=== PATIENT | female | born 1950 | race Caucasian/White ===

== ENCOUNTER 2017-07-01 18:10 | Inpatient (IN) | payer MEDICARE, BC ==
[2017-07-01] MEDS ORDERED: ASPIRIN 81 MG PO STA (18:30)
[2017-07-01] MEDS ORDERED: NITROGLYCERIN SL TABS 0.4 MG TAB SUBLINGUAL PRN (18:30)
[2017-07-01] MEDS ORDERED: SODIUM CHLORIDE 0.9% 1,000 ML IV STA (18:30)
[2017-07-01] MEDS ORDERED: HEPARIN SODIUM,PORCINE/D5W PMX 25,000 UNIT in DEXTROSE/WATER 1 500ML.BAG IV SCH (18:30)
[2017-07-01] MEDS ORDERED: HEPARIN SODIUM,PORCINE 5,000 UNIT/ML 1 ML VIAL IV PRN (18:30)
[2017-07-01 18:51] LABS: Basophils # (A) 0.1 k/uL (0-0.2); Basophils % (A) 1 %; CH 30.4; CHCM 33.1; Eosinophils # (A) 0.2 k/uL (0-0.7); Eosinophils % (A) 1 %; HCT 37.7 % (34.0-46.0); HDW 2.51; HGB 12.7 gm/dL (11.4-16.0); Luc # (Auto) 0.15; Luc % (Auto) 1; Lymphocytes # (A) 1.8 k/uL (1.0-4.8); Lymphocytes % (A) 12 %; MCH 31.1 pg (25.0-35.0); MCHC 33.6 g/dL (31.0-37.0); MCV 92.4 fL (80.0-100.0); Mean Platelet Volume 7.1; Monocytes # (A) 0.7 k/uL (0-1.0); Monocytes % (A) 4 %; Neutrophils # (A) 12.6 k/uL (1.3-7.7); Neutrophils % (A) 81 %; RBC 4.08 m/uL (3.80-5.40); RDW 13.2 % (11.5-15.5); WBC 15.5 k/uL (3.8-10.6); WBC (Perox) 16.09
[2017-07-01 19:02] LABS: INR 1.1 (<1.2); Partial Thromboplastin Time 35.5 sec (22.0-30.0); Prothrombin Time 10.7 sec (9.0-12.0)
--- NOTE | 2017-07-01 19:05 | ED ---
General Adult HPI - General Chief complaint: Chest Pain Stated complaint: Chest Pain Time Seen by Provider: 07/01/17 18:29 Source: patient, EMS, RN notes reviewed, old records reviewed Mode of arrival: ambulatory Limitations: no limitations - History of Present Illness Initial comments: This is a 59-year-old female here for evaluation. This patient presents for evaluation regarding non-ST elevated [place], chest pain. Patient's transfer patient , this time patient's chest pain is still exists but is improved, as well as a 2 with no shortness of breath. - Related Data Home Medications Medication Instructions Recorded Confirmed Calcium Carbonate/Vitamin D3 1 tab PO BID 04/08/14 07/01/17 [Caltrate 600 + D Tablet] Cholecalciferol [Vitamin D3] 3,000 units PO BID 04/08/14 07/01/17 metFORMIN HCL [Glucophage] 1,000 mg PO BID-W/MEALS 04/08/14 07/01/17 Atorvastatin [Lipitor] 20 mg PO HS 07/01/17 07/01/17 Esomeprazole Magnesium [NexIUM 22.3 mg PO BID 07/01/17 07/01/17 24Hr] Allergies Allergy/AdvReac Type Severity Reaction Status Date / Time codeine AdvReac Nausea & Verified 07/01/17 18:19 Vomiting Review of Systems ROS Statement: Those systems with pertinent positive or pertinent negative responses have been documented in the HPI. ROS Other: All systems not noted in ROS Statement are negative. Past Medical History Past Medical History: Cancer, Diabetes Mellitus, Deep Vein Thrombosis (DVT), GERD/Reflux, Hyperlipidemia Additional Past Medical History / Comment(s): BREAST BILATERAL CA History of Any Multi-Drug Resistant Organisms: None Reported Past Surgical History: Breast Surgery, Hysterectomy, Tubal Ligation Additional Past Surgical History / Comment(s): LEFT LUMPECTOMY. RIGHT MASTECTOMY Past Anesthesia/Blood Transfusion Reactions: No Reported Reaction Past Psychological History: No Psychological Hx Reported Smoking Status: Never smoker - Past Family History Mother Family Medical History: Cancer Additional Family Medical History / Comment(s): COLON, PROSTATE. General Exam Limitations: no limitations General appearance: alert, in no apparent distress Head exam: Present: atraumatic, normocephalic, normal inspection Eye exam: Present: normal appearance, PERRL, EOMI. Absent: scleral icterus, conjunctival injection, periorbital swelling ENT exam: Present: normal exam, mucous membranes moist Neck exam: Present: normal inspection. Absent: tenderness, meningismus, lymphadenopathy Respiratory exam: Present: normal lung sounds bilaterally. Absent: respiratory distress, wheezes, rales, rhonchi, stridor Cardiovascular Exam: Present: regular rate, normal rhythm, normal heart sounds. Absent: systolic murmur, diastolic murmur, rubs, gallop, clicks GI/Abdominal exam: Present: soft, normal bowel sounds. Absent: distended, tenderness, guarding, rebound, rigid Extremities exam: Present: normal inspection, full ROM, normal capillary refill. Absent: tenderness, pedal edema, joint swelling, calf tenderness Back exam: Present: normal inspection Neurological exam: Present: alert, oriented X3, CN II-XII intact Psychiatric exam: Present: normal affect, normal mood Skin exam: Present: warm, dry, intact, normal color. 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 Patient has positive S non-ST elevated [place], positive troponin we'll defer anticoagulation and cardiopulmonary evaluation - Lab Data Result diagrams: 07/01/17 18:39 07/01/17 18:39 Lab Results 07/01/17 07/01/17 07/01/17 Range/Units 18:39 18:39 18:39 WBC 15.5 H (3.8-10.6) k/uL RBC 4.08 (3.80-5.40) m/uL Hgb 12.7 (11.4-16.0) gm/dL Hct 37.7 (34.0-46.0) % MCV 92.4 (80.0-100.0) fL MCH 31.1 (25.0-35.0) pg MCHC 33.6 (31.0-37.0) g/dL RDW 13.2 (11.5-15.5) % Plt Count 380 (150-450) k/uL Neutrophils % 81 % Lymphocytes % 12 % Monocytes % 4 % Eosinophils % 1 % Basophils % 1 % Neutrophils # 12.6 H (1.3-7.7) k/uL Lymphocytes # 1.8 (1.0-4.8) k/uL Monocytes # 0.7 (0-1.0) k/uL Eosinophils # 0.2 (0-0.7) k/uL Basophils # 0.1 (0-0.2) k/uL PT 10.7 (9.0-12.0) sec INR 1.1 (<1.2) APTT 35.5 H (22.0-30.0) sec Sodium 135 L (137-145) mmol/L Potassium 4.0 (3.5-5.1) mmol/L Chloride 102 (98-107) mmol/L Carbon Dioxide 24 (22-30) mmol/L Anion Gap 9 mmol/L BUN 14 (7-17) mg/dL Creatinine 0.75 (0.52-1.04) mg/dL Est GFR (MDRD) Af Amer >60 (>60 ml/min/1.73 sqM) Est GFR (MDRD) Non-Af >60 (>60 ml/min/1.73 sqM) Glucose 172 H (74-99) mg/dL Calcium 8.8 (8.4-10.2) mg/dL Magnesium 1.1 L (1.6-2.3) mg/dL Total Bilirubin 0.8 (0.2-1.3) mg/dL AST 40 H (14-36) U/L ALT 32 (9-52) U/L Alkaline Phosphatase 82 (38-126) U/L Total Protein 5.8 L (6.3-8.2) g/dL Albumin 3.4 L (3.5-5.0) g/dL Critical Care Time Critical Care Time: Yes Total Critical Care Time: 31 Disposition Clinical Impression: Chest pain, Acute non-ST segment elevation myocardial infarction (STEMI) following previous myocardial infarction Disposition: ADMITTED IP TO THIS HOSP Condition: Serious Referrals: Nonstaff,Physician [Primary Care Provider] - 1-2 days
[2017-07-01 19:08] LABS: ALT 32 U/L (9-52); AST 40 U/L (14-36); Alkaline Phosphatase 82 U/L (38-126); Anion Gap 9 mmol/L; Blood Urea Nitrogen 14 mg/dL (7-17); Calcium 8.8 mg/dL (8.4-10.2); Carbon Dioxide 24 mmol/L (22-30); Chloride 102 mmol/L (98-107); Glucose 172 mg/dL (74-99); Magnesium 1.1 mg/dL (1.6-2.3); Non-African American GFR(MDRD) >60 (>60 ml/min/1.73 sqM); Sodium 135 mmol/L (137-145); Total Bilirubin 0.8 mg/dL (0.2-1.3); Total Protein 5.8 g/dL (6.3-8.2)
[2017-07-01 19:37] LABS: Creatine Kinase MB 14.4 ng/mL (0.0-2.4); Troponin I 3.02 ng/mL (0.000-0.034)
[2017-07-01 20:49] VITALS: BMI 30.2
[2017-07-01] MEDS ORDERED: HYDROmorphone 1 MG/ML 1 ML SYRINGE IVP PRN (22:12)
[2017-07-01] MEDS ORDERED: ACETAMINOPHEN TAB 325 MG TAB PO PRN (22:14)
[2017-07-01] MEDS ORDERED: Magnesium Replacement Protocol 1 EACH MISC MISCELLANE PRN (22:15)
[2017-07-01] MEDS: MAGNESIUM SULFATE-D5W PMX 1 GM in DEXTROSE/WATER 1 100ML.BAG IVPB SCH (23:06)
[2017-07-01] MEDS: NITROGLYCERIN OINT 1 INCH/GM PACKET TOPICAL SCH (23:07)
[2017-07-02] MEDS: MAGNESIUM SULFATE-D5W PMX 1 GM in DEXTROSE/WATER 1 100ML.BAG IVPB SCH ×2 (00:08→01:17)
[2017-07-02 01:35] LABS: Creatine Kinase MB 11.3 ng/mL (0.0-2.4); Troponin I 4.65 ng/mL (0.000-0.034)
[2017-07-02] MEDS: NITROGLYCERIN OINT 1 INCH/GM PACKET TOPICAL SCH ×4 (05:47→23:43)
[2017-07-02 06:08] LABS: Glucose,Whole Blood 226 mg/dL (75-99)
[2017-07-02 07:49] LABS: Basophils # (A) 0.1 k/uL (0-0.2); Basophils % (A) 1 %; CH 31.4; CHCM 33.2; Eosinophils % (A) 0 %; HCT 37.4 % (34.0-46.0); HDW 2.38; HGB 12.2 gm/dL (11.4-16.0); Luc # (Auto) 0.18; Luc % (Auto) 1; Lymphocytes # (A) 1.9 k/uL (1.0-4.8); Lymphocytes % (A) 15 %; MCHC 32.6 g/dL (31.0-37.0); Mean Platelet Volume 8.2; Monocytes # (A) 0.9 k/uL (0-1.0); Monocytes % (A) 7 %; Neutrophils # (A) 9.9 k/uL (1.3-7.7); Neutrophils % (A) 76 %; RBC 3.94 m/uL (3.80-5.40); RDW 14.3 % (11.5-15.5); WBC (Perox) 12.68
--- NOTE | 2017-07-02 07:51 | XR ---
EXAMINATION TYPE: XR chest 1V portable DATE OF EXAM: 07/02/2017 COMPARISON: Prior chest x-ray 07/01/2017 HISTORY: Congestive heart failure TECHNIQUE: Single frontal view of the chest is obtained. FINDINGS: Postop changes are again noted. The heart remains enlarged. No pneumothorax. Interstitium is increased. Difficult to exclude retrocardiac density. IMPRESSION: Similar to prior exam, there is cardiomegaly. There may be some interstitial edema. Ther e may be lower lobe atelectasis, edema, pneumonia. Follow-up PA and lateral chest x-ray may be of greg efit.
[2017-07-02 08:10] LABS: Anion Gap 7 mmol/L; Blood Urea Nitrogen 10 mg/dL (7-17); Carbon Dioxide 23 mmol/L (22-30); Chloride 102 mmol/L (98-107); Cholesterol 179 mg/dL (<200); Glucose 236 mg/dL (74-99); HDL Cholesterol 75 mg/dL (40-60); Magnesium 1.9 mg/dL (1.6-2.3); Non-African American GFR(MDRD) >60 (>60 ml/min/1.73 sqM); Potassium 4.1 mmol/L (3.5-5.1); Sodium 132 mmol/L (137-145)
--- NOTE | 2017-07-02 08:17 | P.CRDCN ---
History of Present Illness Consult date: 07/02/17 Requesting physician: Mansi [place] Consult reason: chest pain Chief complaint: Chest pain History of present illness: This is a pleasant 67-year-old female with history of diabetes, hyperlipidemia, breast cancer with prior right-sided mastectomy 20 years ago, 12 years ago patient had a left-sided lumpectomy. She is a nonsmoker, no history of hypertension. No family history of premature coronary artery disease. Patient presents to the hospital with symptoms of chest discomfort. According to the patient, yesterday morning she developed a severe heaviness and pressure sensation in her chest, she states she was very clammy, and nauseated. The pain did radiate over into her left shoulder area. She states that she went back to bed and slept for several hours, however upon wakening the symptoms persisted and she came to the emergency room for further evaluation. At the time of my examination this morning, she continues to have mild pressure, although she states this morning that the pain worsens when she takes a deep breath. EKG on arrival here shows a sinus tachycardia with nonspecific ST-T wave changes. Subsequent EKG performed this morning shows a sinus tachycardia with anterior lateral ST-T wave changes. Chest x-ray suggests a possible mild interstitial edema, may be lower lobe atelectasis or pneumonia. White blood cell count on admission 15.5, 13 this morning. Hemoglobin 12.2, platelet count 339. Sodium 135, potassium 4.0, BUN 14, creatinine 0.7. Magnesium level on admission 1.1, AST 40, ALT 32. Troponin 3.0 , 4.6. Blood pressure on arrival 130/80, heart rate 104, 99% on 2 L of oxygen. Past Medical History Past Medical History: Cancer, Diabetes Mellitus, Deep Vein Thrombosis (DVT), GERD/Reflux, Hyperlipidemia Additional Past Medical History / Comment(s): BREAST BILATERAL CA History of Any Multi-Drug Resistant Organisms: None Reported Past Surgical History: Breast Surgery, Hysterectomy, Tubal Ligation Additional Past Surgical History / Comment(s): LEFT LUMPECTOMY. RIGHT MASTECTOMY Past Anesthesia/Blood Transfusion Reactions: No Reported Reaction Past Psychological History: No Psychological Hx Reported Smoking Status: Never smoker Past Alcohol Use History: None Reported Past Drug Use History: None Reported - Past Family History Mother Family Medical History: Cancer Additional Family Medical History / Comment(s): COLON, PROSTATE. Medications and Allergies Home Medications Medication Instructions Recorded Confirmed Type Calcium Carbonate/Vitamin D3 1 tab PO BID 04/08/14 07/01/17 History [Caltrate 600 + D Tablet] Cholecalciferol [Vitamin D3] 3,000 units PO BID 04/08/14 07/01/17 History metFORMIN HCL [Glucophage] 1,000 mg PO BID-W/MEALS 04/08/14 07/01/17 History Atorvastatin [Lipitor] 20 mg PO HS 07/01/17 07/01/17 History Esomeprazole Magnesium [NexIUM 22.3 mg PO BID 07/01/17 07/01/17 History 24Hr] Allergies Allergy/AdvReac Type Severity Reaction Status Date / Time codeine AdvReac Nausea & Verified 07/01/17 18:19 Vomiting Physical Exam Vitals: Vital Signs Temp Pulse Pulse Resp BP BP BP 07/02/17 05:40 105 H 90/63 07/02/17 04:00 98.6 F 105 H 18 97/70 07/02/17 00:00 99.9 F H 116 H 18 111/78 07/01/17 20:34 97.5 F L 106 H 16 128/82 07/01/17 20:00 106 H 16 07/01/17 19:36 98.6 F 107 H 20 111/68 07/01/17 18:24 102 H 07/01/17 18:12 97.4 F L 104 H 20 131/87 Pulse Ox 07/02/17 05:40 07/02/17 04:00 94 L 07/02/17 00:00 94 L 07/01/17 20:34 100 07/01/17 20:00 07/01/17 19:36 99 07/01/17 18:24 07/01/17 18:12 99 Intake and Output 07/01/17 07/02/17 07/02/17 22:59 06:59 14:59 Intake Total 160 1389 Balance 160 1389 Intake: IV 160 1260 Heparin Sodium,Porcine/ 160 160 D5w Pmx 25,000 unit In Dextrose/Water 1 500ml. bag @ 11.1 UNITS/KG/HR 20 .03 mls/hr IV .Q24H REPLACED BY [facility] Rx#:[id number] Magnesium Sulfate-D5w Pmx 300 1 gm In Dextrose/Water 1 100ml.bag @ 100 mls/hr IVPB Q1H [facility]ACK[facility] Rx#: [id number] Sodium Chloride 0.9% 1, 800 000 ml @ 100 mls/hr IV . Q10H [facility] Rx#:[id number] Intake, IV Titration 129 Amount Heparin Sodium,Porcine/ 129 D5w Pmx 25,000 unit In Dextrose/Water 1 500ml. bag @ 11.1 UNITS/KG/HR 20 .03 mls/hr IV .Q24H JACKY Rx#:[id number] Other: Voiding Method Toilet Toilet # Voids 1 1 Weight 90.265 kg 90.7 kg PHYSICAL EXAMINATION: HEENT: Head is atraumatic, normocephalic. Pupils equal, round. Neck is supple. There is no elevated jugular venous pressure. HEART EXAMINATION: Heart S1, S2 normal. No murmur or gallop heard. CHEST EXAMINATION: Lungs are clear with mild diminished air entry to bilateral bases. ABDOMEN: Soft, nontender. Bowel sounds are heard. No organomegaly noted. EXTREMITIES: 2+ peripheral pulses with no evidence of peripheral edema and no calf tenderness noted. NEUROLOGIC patient is awake, alert and oriented -3. . Results 07/02/17 07:12 07/01/17 18:39 Cardiac Enzymes 07/01/17 07/01/17 07/02/17 Range/Units 18:39 18:39 00:44 AST 40 H (14-36) U/L CK-MB (CK-2) 14.4 H* 11.3 H* (0.0-2.4) ng/mL Troponin I 3.020 H* 4.650 H* (0.000-0.034) ng/mL Coagulation 07/01/17 07/02/17 Range/Units 18:39 00:44 PT 10.7 (9.0-12.0) sec APTT 35.5 H 30.9 H (22.0-30.0) sec CBC 07/01/17 07/02/17 Range/Units 18:39 07:12 WBC 15.5 H 13.0 H (3.8-10.6) k/uL RBC 4.08 3.94 (3.80-5.40) m/uL Hgb 12.7 12.2 (11.4-16.0) gm/dL Hct 37.7 37.4 (34.0-46.0) % Plt Count 380 339 (150-450) k/uL Comprehensive Metabolic Panel 07/01/17 Range/Units 18:39 Sodium 135 L (137-145) mmol/L Potassium 4.0 (3.5-5.1) mmol/L Chloride 102 (98-107) mmol/L Carbon Dioxide 24 (22-30) mmol/L BUN 14 (7-17) mg/dL Creatinine 0.75 (0.52-1.04) mg/dL Glucose 172 H (74-99) mg/dL Calcium 8.8 (8.4-10.2) mg/dL AST 40 H (14-36) U/L ALT 32 (9-52) U/L Alkaline Phosphatase 82 (38-126) U/L Total Protein 5.8 L (6.3-8.2) g/dL Albumin 3.4 L (3.5-5.0) g/dL Current Medications Generic Name Dose Route Start Last Admin Trade Name Freq PRN Reason Stop Dose Admin Acetaminophen 650 mg 07/01/17 22:14 Tylenol Tab PO Q6HR PRN Fever and/ or Pain Aspirin 325 mg 07/02/17 09:00 Aspirin PO DAILY REPLACED BY [facility] Atorvastatin Calcium 80 mg 07/02/17 09:00 Lipitor PO DAILY REPLACED BY [facility] Cholecalciferol 3,000 unit 07/02/17 09:00 Vitamin D3 PO BID REPLACED BY [facility] Heparin Sodium (Porcine) 0 unit 07/01/17 18:30 07/02/17 01:22 Heparin IV 4,000 unit Q6HR PRN Administration Low PTT Protocol Hydromorphone HCl 0.5 mg 07/01/17 22:12 Dilaudid IVP Q4HR PRN Pain Heparin Sodium/Dextrose 25,000 500 mls @ 20.03 mls/hr 07/01/17 18:30 01:23 unit/ IV Solution IV 14.07 units/kg/hr .Q24H JACKY 25.4 mls/hr Protocol Titration 11.1 UNITS/KG/HR Miscellaneous Information 1 each 07/01/17 22:15 Magnesium Per Protocol MISCELLANE DAILY PRN Per Protocol Protocol Nitroglycerin 0.4 mg 07/01/17 18:30 07/01/17 19:00 Nitrostat SUBLINGUAL 0.4 mg Q5M PRN Administration Chest Pain Nitroglycerin 1 inch 07/02/17 00:00 07/02/17 05:47 Nitro-Bid Oint TOPICAL Not Given Q6HR JACKY Intake and Output 07/01/17 07/02/17 07/02/17 22:59 06:59 14:59 Intake Total 160 1389 Balance 160 1389 Intake: IV 160 1260 Heparin Sodium,Porcine/ 160 160 D5w Pmx 25,000 unit In Dextrose/Water 1 500ml. bag @ 11.1 UNITS/KG/HR 20 .03 mls/hr IV .Q24H [facility] Rx#:[id number] Magnesium Sulfate-D5w Pmx 300 1 gm In Dextrose/Water 1 100ml.bag @ 100 mls/hr IVPB Q1H [facility] Rx#: [id number] Sodium Chloride 0.9% 1, 800 000 ml @ 100 mls/hr IV . Q10H [facility] Rx#:[id number] Intake, IV Titration 129 Amount Heparin Sodium,Porcine/ 129 D5w Pmx 25,000 unit In Dextrose/Water 1 500ml. bag @ 11.1 UNITS/KG/HR 20 .03 mls/hr IV .Q24H [facility] Rx#:[id number] Other: Voiding Method Toilet Toilet # Voids 1 1 Weight 90.265 kg 90.7 kg 07/02/17 07:12 07/01/17 18:39 EKG Interpretations (text) Initial EKG shows a sinus tachycardia with nonspecific ST-T wave changes. Repeat EKG performed this morning shows a sinus tachycardia with anterior lateral ST-T wave changes Assessment and Plan Plan: Assessment and plan #1 symptoms of chest pressure and heaviness with associated clamminess, nausea, and radiation to the left shoulder area. Suggestive of acute coronary syndrome. Troponins 3.0 and 4.6. EKG shows sinus tachycardia with anterior lateral ST-T wave changes #2 diabetes #3 hyperlipidemia #4 hypomagnesemia, replaced. #5 prior history of breast cancer, right-sided mastectomy 20 years ago, left- sided lumpectomy 12 years ago. Plan We will obtain a stat echocardiogram with Doppler study. Continue IV heparin. Replace magnesium. Give the patient 80 of Lipitor and now along with an aspirin. We will also give the patient a small dose of beta otilia. The patient has been advised that she may need to undergo cardiac catheterization for more definitive diagnosis. The risks and the benefits were explained to the patient in detail. Further recommendations to follow. DNP note has been reviewed, I agree with a documented findings and plan of care. Patient was seen and examined.
[2017-07-02] MEDS: ASPIRIN 325 MG TAB PO SCH (08:21)
[2017-07-02] MEDS: ATORVASTATIN 80 MG TAB PO SCH (08:21)
[2017-07-02] MEDS ORDERED: ALPRAZolam 0.5 MG TAB PO PRN (08:40)
[2017-07-02] MEDS ORDERED: ATORVASTATIN 80 MG TAB PO STA (08:40)
[2017-07-02] MEDS ORDERED: ASPIRIN 325 MG TAB PO STA (08:40)
[2017-07-02] MEDS ORDERED: ALPRAZolam 0.25 MG TAB PO PRN (08:40)
[2017-07-02] MEDS ORDERED: SODIUM CHLORIDE 0.9% 1,000 ML in EMPTY BAG 1 BAG IV ONE (08:40)
[2017-07-02] MEDS ORDERED: NITROGLYCERIN SL TABS 0.4 MG TAB SUBLINGUAL PRN ×2 (08:40→10:26)
[2017-07-02] MEDS ORDERED: IV FLUID CONTINUATION 1,000 ML IV ONE (09:10)
[2017-07-02] MEDS ORDERED: LIDOCAINE 2% INJ 20 MG/ML SQ ONE (09:41)
[2017-07-02] MEDS ORDERED: MIDAZOLAM 2 MG/2 ML VIAL IV ONE (09:42)
[2017-07-02] MEDS: VERAPAMIL SYRINGE (5 MG/10 ML) INTRAARTER ONE ×2 (09:43→10:20)
[2017-07-02] MEDS ORDERED: BIVALIRUDIN BOLUS 250 MG/50 ML IV ONE (09:56)
[2017-07-02] MEDS ORDERED: BIVALIRUDIN 250 MG in SODIUM CHLORIDE 0.9% 50 ML IV ONE (09:58)
[2017-07-02] MEDS ORDERED: MIDAZOLAM 2 MG/2 ML VIAL IVP ONE (10:00)
[2017-07-02] MEDS ORDERED: PRASUGREL 10 MG TAB PO ONE (10:12)
[2017-07-02] MEDS ORDERED: IOHEXOL 350 MG/ML 125ML BOTTLE INJ ONE (10:17)
[2017-07-02] MEDS ORDERED: ATROPINE SULFATE 0.1 MG/ML 10ML SYRINGE IV PRN (10:26)
[2017-07-02] MEDS ORDERED: RX INFO: IV CONTRAST WAS GIVEN 1 EACH MISC MISCELLANE PRN (10:26)
[2017-07-02] MEDS ORDERED: ZOLPIDEM 5 MG TAB PO PRN (10:26)
[2017-07-02] MEDS ORDERED: MAG HYDROX/AL HYDROX/SIMETH 30 ML CUP PO PRN (10:26)
[2017-07-02] MEDS ORDERED: SODIUM CHLORIDE 0.9% 1,000 ML IV SCH (10:30)
[2017-07-02 11:15] LABS: Glucose,Whole Blood 298 mg/dL (75-99)
--- NOTE | 2017-07-02 13:15 | ECHOF ---
Referral Reason:assess lvf MEASUREMENTS -------- HEIGHT: 172.7 cm WEIGHT: 90.3 kg BP: 90/63 RVIDd: 2.9 cm (< 3.3) IVSd: 1.2 cm (0.6 - 1.1) LVIDd: 4.3 cm (3.9 - 5.3) LVPWd: 1.1 cm (0.6 - 1.1) IVSs: 1.7 cm LVIDs: 3.5 cm LVPWs: 1.5 cm LA Diam: 3.0 cm (2.7 - 3.8) LAESV Index (A-L): 27.42 ml/m Ao Diam: 3.5 cm (2.0 - 3.7) AV Cusp: 1.8 cm (1.5 - 2.6) MV EXCURSION: 8.134 mm (> 18.000) MV EF SLOPE: 27 mm/s (70 - 150) EPSS: 1.7 cm MV E Jagjit: 0.89 m/s MV DecT: 144 ms MV A Jagjit: 0.95 m/s MV E/A Ratio: 0.94 RAP: 5.00 mmHg RVSP: 34.70 mmHg FINDINGS -------- This was a technically difficult study with suboptimal views. The left ventricular size is normal. There is borderline concentric left ventricular hypertrophy. Overall left ventricular systolic function is severely impaired with, an EF between 25 - 30 %. Apical anterior LV wall motion is hypokinetic. Apical lateral LV wall motion is hypokinetic. Apical inferior LV wall motion is hypokinetic. Apical septum LV wall motion is hypokinetic. The right ventricle is normal in size. The left atrial size is normal. The right atrium was not well visualized. 1.5mg of Definity was utilized for enhancement of images Aortic valve is trileaflet and is mildly thickened. Mild mitral annular calcification present. Mild tricuspid regurgitation present. There is mild pulmonary hypertension. The right ventricular systolic pressure, as measured by Doppler, is 34.70mmHg. Trace/mild (physiologic) pulmonic regurgitation. The aortic root size is normal. IVC Not well visulized. The pericardium is normal. CONCLUSIONS -------- 1. This was a technically difficult study with suboptimal views. 2. The right atrium was not well visualized. 3. 1.5mg of Definity was utilized for enhancement of images 4. Aortic valve is trileaflet and is mildly thickened. 5. Mild mitral annular calcification present. 6. Mild tricuspid regurgitation present. 7. There is mild pulmonary hypertension. 8. The right ventricular systolic pressure, as measured by Doppler, is 34.70mmHg. 9. Trace/mild (physiologic) pulmonic regurgitation. 10. The aortic root size is normal. 11. IVC Not well visulized. 12. The left ventricular size is normal. 13. The pericardium is normal. 14. There is borderline concentric left ventricular hypertrophy. 15. Apical anterior LV wall motion is hypokinetic. 16. Apical lateral LV wall motion is hypokinetic. 17. Apical inferior LV wall motion is hypokinetic. 18. Apical septum LV wall motion is hypokinetic. 19. The right ventricle is normal in size. 20. The left atrial size is normal. PLAN CONSULTANT: Christy Serrano RDCS
[2017-07-02 15:56] LABS: Appearance,Urine Clear (Clear); Bilirubin,Urine Negative (Negative); Glucose,Urine (UA) 4+ (Negative); Ketones,Urine Negative (Negative); Leukocyte Esterase,Urine Negative (Negative); Nitrite,Urine Negative (Negative); PH, Urine 5.5 (5.0-8.0); Protein,Urine Negative (Negative); Specific Gravity,Urine 1.025 (1.001-1.035); UA Billing (MACRO vs. MICRO) CHEM; Urobilinogen,Urine <2.0 mg/dL (<2.0)
[2017-07-02] MEDS: METOPROLOL TARTRATE 12.5 MG TAB PO SCH ×2 (16:23→20:24)
[2017-07-02] MEDS: CHOLECALCIFEROL 1,000 UNIT TAB PO SCH ×2 (16:23→20:25)
[2017-07-02 16:49] LABS: Glucose,Whole Blood 233 mg/dL (75-99)
--- NOTE | 2017-07-02 17:05 | HP ---
DATE OF SERVICE: 07/01/2017 CHIEF COMPLAINT: Chest pain. HISTORY OF PRESENT ILLNESS: This 67-year-old woman with a past medical history of multiple medical problems, including diabetes mellitus, DVT, history of GERD , hyperlipidemia, being followed by a primary physician in the [place] area , was admitted with chest pain that was diffuse in character, felt in the anterior part of the chest. The patient came to [facility] and was admitted for further evaluation and treatment. There is no history of any fever , rigor or chills. No history of headache, loss of consciousness, seizures. PAST MEDICAL HISTORY: 1. History of diabetes mellitus. 2. DVT. 3. History of GERD. 4. History of hyperlipidemia. Medications are: 1. Glucophage 1000 mg b.i.d. with meals. 2. Nexium 22.3 p.o. b.i.d. 3. Vitamin D3 3000 b.i.d. 4. Vitamin D3 one p.o. b.i.d. 5. Lipitor 20 mg at bedtime. ALLERGIES: CODEINE. FAMILY HISTORY: History of colon cancer, prostate cancer. SOCIAL HISTORY: No history of smoking. No history of alcohol intake. REVIEW OF SYSTEMS: ENT: No diminished hearing. No diminished vision. CARVIOVASCULAR SYSTEM: As mentioned earlier. RESPIRATORY SYSTEM: As mentioned earlier. GI: No nausea, vomiting. : No dysuria, retention. NERVOUS SYSTEM: No numbness, weakness. ALLERGY/IMMUNOLOGY: No asthma, hayfever. MUSCULOSKELETAL: As mentioned earlier. HEMATOLOGY/ONCOLOGY: No history of anemia. ENDOCRINE: History of diabetes. No hypothyroidism. CONSTITUTIONAL: As mentioned earlier. DERMATOLOGY: Negative. RHEUMATOLOGY: Negative. PSYCHIATRY: As mentioned earlier. PHYSICAL EXAM: Patient is alert and oriented x3. Pulse is 106, blood pressure 128/82, respiration 16, temperature 97.5, pulse ox 100% on 2 L. HEENT: Conjunctivae normal. NECK: No jugular venous distention. CARDIOVASCULAR: S1, S2 muffled. RESPIRATORY: Breath sounds diminished at the bases. A few scattered rhonchi and crackles. ABDOMEN: Soft. Non-tender. No mass palpable. LEGS: No edema. No swelling. NERVOUS SYSTEM: Higher functions as mentioned earlier. Moves all 4 limbs. No focal motor or sensory deficit. LYMPHATICS: No lymph node palpable in neck, axillae or groin. SKIN: No ulcer, rash, bleeding. LABS: WBC 15.5, hemoglobin 12.7. Sodium 135. Troponin 3.020. ASSESSMENT: 1. Acute [id number]-elevation myocardial infarction. 2. Troponin 3.020. 3. Hyponatremia. 4. Diabetes mellitus, type 2. 5. Deep vein thrombosis. 6. Bilateral breast cancer. RECOMMENDATIONS AND DISCUSSION: In this 67-year-old woman who presented with multiple complex medical issues, we will monitor the patient closely, continue the current medications, continue with symptomatic treatment. Unstable angina protocol. IV heparin. Cardiology consultation. Possible cardiac catheterization. Antiplatelet agents. Beta blockers. See orders for further details. sues. Further recommendations to follow.Guarded prognosis because of multiple complex medical issues. Further recommendations to follow. MTDD
--- NOTE | 2017-07-02 19:52 | CC ---
DATE OF SERVICE: 07/02/17 PERFORMING PHYSICIAN: Eleazar Sosa M.D., and taxi instructor bus trolley. PROCEDURE PERFORMED: 1. Selective right and left coronary angiogram. 2. Successful stenting of the proximal LAD using 4.0 x 18 mm Xience DS with good angiographic results. INDICATIONS: This is a pleasant 67 year old diabetic patient who presented to the hospital with chest discomfort and her cardiac enzymes were checked and came to be abnormal and consistent with acute OH. Heart catheterization and percutaneous coronary intervention was recommended. APPROACH: Right radial artery. COMPLICATIONS: None. LEVEL OF SEDATION: Moderate with a sedation length of 41 minutes. PROCEDURE DESCRIPTION: After obtaining informed consent, the patient was brought to the cardiac senior laboratory technician. The right radial artery was cannulated using micropuncture technique. The micropuncture wire passed easily. Then, I placed a 6 Taiwanese sheath in the right radial artery. Subsequently I did give the patient a total of 3000 units of heparin IV and 2 mg of Verapamil IA. I did after that selective right and left coronary angiogram using JR4 and JL3.5 catheters. After that, I did intervene on the LAD. Please see a separate paragraph for that. SELECTIVE CORONARY ANGIOGRAM: 1. The right coronary artery is a large caliber vessel and it is a dominant vessel. The right coronary artery is angiographically normal. In the proximal , mid and distal portion. It bifurcates distally into the PDA and PLV branches both are angiographically normal. 2. The left main is angiographically normal. It bifurcates into left circumflex and left anterior descending artery. 3. The left circumflex is a large caliber vessel and it is a nondominant vessel. The proximal left circumflex is normal. The mid left circumflex is normal as well. It gives rise into the first and second obtuse marginal branches, both are angiographically normal and the third continues after that as a small caliber vessel in the AV groove. 4. The left anterior descending coronary artery: The very proximal left anterior descending artery appeared to have eccentric lesion seems to be in the range of 70%. The mid LAD appeared to be angiographically normal and the LAD distally is angiographically normal. The LAD gives rise into a diagonal branch which seems to be angiographically normal. MATERIAL MAN of the LAD: Anticoagulation was initiated using Angiomax. Subsequently, I took a JL3.5 guiding catheter and the left main was engaged. A Whisper wire was used to wire the left anterior descending artery. Subsequently I did predilation using 3.5 x 12 mm balloon and then I deployed 4.0 x 18 mm Xience DS under 11 atmospheres for 30 seconds. The stent was positioned under fluoroscopy guidance as well. I postdilated the stent using 4-0 NC balloon which was inflated under 16 atmospheres for 20 seconds. The following angiogram showed good angiographic results without perforation and without dissection with ASHLEE III flow into the LAD. CONCLUSION: 1. Acute non-ST elevation myocardial infarction. 2. Normal and dominant right coronary artery. 3. Normal left main coronary artery. 4. Normal left circumflex coronary artery. 5. Severe disease involving the proximal left anterior descending artery with eccentric plaque. 6. Successful stenting of the proximal LAD using 4.0 x 18 mm Xience DS with good angiographic results. POSTPROCEDURE MANAGEMENT: 1. Dual antiplatelet therapy. 2. Risk factor modifications. 3. Follow-up with the patient. SANDRA
[2017-07-02 20:45] LABS: Glucose,Whole Blood 242 mg/dL (75-99)
[2017-07-02] MEDS: metFORMIN 500 MG TAB PO SCH ×2 (22:17→22:31)
[2017-07-03] MEDS: NITROGLYCERIN OINT 1 INCH/GM PACKET TOPICAL SCH (05:20)
[2017-07-03 05:25] LABS: Glucose,Whole Blood 197 mg/dL (75-99)
[2017-07-03 07:26] LABS: Basophils # (A) 0.1 k/uL (0-0.2); Basophils % (A) 1 %; CH 30.4; CHCM 33.1; Eosinophils # (A) 0.1 k/uL (0-0.7); Eosinophils % (A) 1 %; HCT 34.7 % (34.0-46.0); HDW 2.38; HGB 11.4 gm/dL (11.4-16.0); Luc # (Auto) 0.19; Luc % (Auto) 2; Lymphocytes # (A) 1.8 k/uL (1.0-4.8); Lymphocytes % (A) 17 %; MCH 30.3 pg (25.0-35.0); MCHC 32.8 g/dL (31.0-37.0); MCV 92.4 fL (80.0-100.0); Mean Platelet Volume 7.1; Monocytes # (A) 0.7 k/uL (0-1.0); Monocytes % (A) 6 %; Neutrophils # (A) 7.5 k/uL (1.3-7.7); Neutrophils % (A) 73 %; RBC 3.76 m/uL (3.80-5.40); RDW 13.3 % (11.5-15.5); WBC 10.3 k/uL (3.8-10.6)
[2017-07-03 07:45] LABS: Anion Gap 6 mmol/L; Blood Urea Nitrogen 7 mg/dL (7-17); Calcium 8.3 mg/dL (8.4-10.2); Carbon Dioxide 23 mmol/L (22-30); Chloride 105 mmol/L (98-107); Glucose 190 mg/dL (74-99); Non-African American GFR(MDRD) >60 (>60 ml/min/1.73 sqM); Potassium 4.1 mmol/L (3.5-5.1); Sodium 134 mmol/L (137-145)
[2017-07-03] MEDS: ASPIRIN 325 MG TAB PO SCH (09:11)
[2017-07-03] MEDS: ATORVASTATIN 80 MG TAB PO SCH (09:11)
[2017-07-03] MEDS: METOPROLOL TARTRATE 12.5 MG TAB PO SCH ×2 (09:11→19:54)
[2017-07-03] MEDS: CHOLECALCIFEROL 1,000 UNIT TAB PO SCH ×2 (09:11→19:54)
--- NOTE | 2017-07-03 09:13 | PN ---
DATE OF SERVICE: 07/02/2017 This is a 67-year-old woman admitted with acute non-ST elevation myocardial infarction, underwent a cardiac catheterization with stenting by Cardiology. No chest pain, no palpitation, no fever. A 2D echo with a Doppler was done which showed ejection fraction of 25% to 30% with chronic systolic dysfunction with severe dyskinesia. On exam, alert and oriented x3. Pulse 98, blood pressure 108/68, respirations 16, temperature is 97.8, pulse ox 98% on room air. HEENT: Conjunctivae normal. NECK: No jugular venous distension. CARDIOVASCULAR SYSTEM: S1, S2 muffled. RESPIRATORY: Breath sounds diminished at the bases. Scattered rhonchi, no crackles. ABDOMEN: Soft, nontender. LEGS: No edema, no swelling. NERVOUS SYSTEM: No focal deficits. LABS: WBC is 13, glucose 298. ASSESSMENT: 1. Acute non-ST segment elevation myocardial infarction as well as cardiac catheterization with stenting. 2. Possible congestive heart failure with chronic systolic dysfunction, ejection fraction 25% to 30% with possible cardiomyopathy, ischemic. 3. Troponin 3.020. 4. Hyponatremia. 5. Diabetes mellitus type 2. 6. History of deep venous thrombosis. 7. History of bilateral breast cancer. RECOMMENDATION: Recommend to continue with the monitoring and symptomatic treatment. Otherwise, closely monitor. Follow with Cardiology. Otherwise, continue with the insulin scale, initiate metformin after cardiac cath. Guarded prognosis because of complex medical issues and further recommendations to follow. [facility]
[2017-07-03] MEDS ORDERED: PRASUGREL 10 MG TAB PO SCH (10:27)
[2017-07-03 11:34] LABS: Glucose,Whole Blood 216 mg/dL (75-99)
--- NOTE | 2017-07-03 11:47 | P.PN ---
Subjective Principal diagnosis: Non-STEMI This is a pleasant 67-year-old female with history of diabetes, hyperlipidemia, breast cancer with prior right-sided mastectomy 20 years ago, 12 years ago patient had a left-sided lumpectomy. She is a nonsmoker, no history of hypertension. No family history of premature coronary artery disease. Patient presents to the hospital with symptoms of chest discomfort. According to the patient, yesterday morning she developed a severe heaviness and pressure sensation in her chest, she states she was very clammy, and nauseated. The pain did radiate over into her left shoulder area. She states that she went back to bed and slept for several hours, however upon wakening the symptoms persisted and she came to the emergency room for further evaluation. At the time of my examination this morning, she continues to have mild pressure, although she states this morning that the pain worsens when she takes a deep breath. EKG on arrival here shows a sinus tachycardia with nonspecific ST-T wave changes. Subsequent EKG performed this morning shows a sinus tachycardia with anterior lateral ST-T wave changes. Chest x-ray suggests a possible mild interstitial edema, may be lower lobe atelectasis or pneumonia. White blood cell count on admission 15.5, 13 this morning. Hemoglobin 12.2, platelet count 339. Sodium 135, potassium 4.0, BUN 14, creatinine 0.7. Magnesium level on admission 1.1, AST 40, ALT 32. Troponin 3.0 , 4.6. Blood pressure on arrival 130/80, heart rate 104, 99% on 2 L of oxygen. 07/03/2017 Patient was taken to the cardiac catheterization lab yesterday where she underwent angioplasty with stenting of the LAD. Echocardiogram with Doppler study revealed an ejection fraction of 25-30%, apical lateral inferior hypokinesia noted. Patient was seen and examined this morning, denies any chest pain or difficulty in breathing. She has been up ambulating without any difficulty today. Blood pressure 108/60 with a heart rate in the 80s. CBC normal. Sodium 134, potassium 4.1, BUN 7, creatinine 1.6. Patient is currently on aspirin, Lipitor, metoprolol tartrate 12-1/2 mg one tablet by mouth twice a day, Effient 10 mg daily, We will also start the patient on a low-dose DEX inhibitor today. Continue to monitor for 24-48 hours. Objective - Vital Signs Vital signs: Vital Signs Temp 97.1 F L 07/03/17 11:30 Pulse 86 07/03/17 11:30 Resp 18 07/03/17 11:30 BP 108/55 07/03/17 11:30 Pulse Ox 97 07/03/17 11:30 Intake & Output 07/02/17 07/03/17 07/03/17 18:59 06:59 18:59 Intake Total 1028.82 1120 240 Output Total 1800 Balance -771.18 1120 240 Weight 91.1 kg Intake: IV 628.82 400 Sodium Chloride 0.9% 1, 400 400 000 ml @ 100 mls/hr IV . Q10H STA Rx#:[id number] Oral 400 720 240 Output: Urine 1800 Other: Voiding Method Toilet Toilet Toilet # Voids 1 2 - Exam PHYSICAL EXAMINATION: HEENT: Head is atraumatic, normocephalic. Pupils equal, round. Neck is supple. There is no elevated jugular venous pressure. HEART EXAMINATION: Heart S1, S2 normal. No murmur or gallop heard. CHEST EXAMINATION: Lungs are clear to auscultation and precussion. No chest wall tenderness is noted on palpation or with deep breathing. ABDOMEN: Soft, nontender. Bowel sounds are heard. No organomegaly noted. Right radial site clean and dry, good distal pulse. EXTREMITIES: 2+ peripheral pulses with no evidence of peripheral edema and no calf tenderness noted. NEUROLOGIC patient is awake, alert and oriented -3. . - Labs CBC & Chem 7: 07/03/17 07:06 07/03/17 07:01 Labs: Abnormal Lab Results - Last 24 Hours (Table) 07/02/17 07/02/17 07/02/17 Range/Units 15:51 16:35 20:44 RBC (3.80-5.40) m/uL Sodium (137-145) mmol/L Glucose (74-99) mg/dL POC Glucose (mg/dL) 233 H 242 H (75-99) mg/dL Calcium (8.4-10.2) mg/dL Urine Glucose (UA) 4+ H (Negative) 07/03/17 07/03/17 07/03/17 Range/Units 05:24 07:01 07:06 RBC 3.76 L (3.80-5.40) m/uL Sodium 134 L (137-145) mmol/L Glucose 190 H (74-99) mg/dL POC Glucose (mg/dL) 197 H (75-99) mg/dL Calcium 8.3 L (8.4-10.2) mg/dL Urine Glucose (UA) (Negative) 07/03/17 Range/Units 11:32 RBC (3.80-5.40) m/uL Sodium (137-145) mmol/L Glucose (74-99) mg/dL POC Glucose (mg/dL) 216 H (75-99) mg/dL Calcium (8.4-10.2) mg/dL Urine Glucose (UA) (Negative) Assessment and Plan (1) Diabetes Status: Acute (2) HTN (hypertension) Status: Acute (3) Hyperlipemia Status: Acute (4) Hx of breast cancer Status: Acute (5) Presence of stent in LAD coronary artery Status: Acute (6) Ischemic cardiomyopathy Status: Acute (7) Acute non-ST segment elevation myocardial infarction (STEMI) following previous myocardial infarction Status: Acute Plan: From cardiology's perspective, we will add a small dose of DEX inhibitor to the patient's medication regime. Continue to monitor for 24-48 hours. DNP note has been reviewed, I agree with a documented findings and plan of care. Patient was seen and examined.
[2017-07-03] MEDS ORDERED: CLOPIDOGREL 75 MG TAB PO STA (14:32)
[2017-07-03] MEDS: LISINOPRIL 2.5 MG TAB PO SCH (15:35)
[2017-07-03 17:15] LABS: Glucose,Whole Blood 283 mg/dL (75-99)
[2017-07-03 21:14] LABS: Glucose,Whole Blood 261 mg/dL (75-99)
[2017-07-04 05:49] LABS: Glucose,Whole Blood 196 mg/dL (75-99)
[2017-07-04 06:58] LABS: Basophils # (A) 0.1 k/uL (0-0.2); Basophils % (A) 1 %; CH 30.4; CHCM 32.6; Eosinophils # (A) 0.2 k/uL (0-0.7); Eosinophils % (A) 2 %; HCT 34.2 % (34.0-46.0); HDW 2.33; HGB 11.1 gm/dL (11.4-16.0); Luc # (Auto) 0.24; Luc % (Auto) 3; Lymphocytes # (A) 1.8 k/uL (1.0-4.8); Lymphocytes % (A) 20 %; MCH 30.4 pg (25.0-35.0); MCHC 32.5 g/dL (31.0-37.0); MCV 93.7 fL (80.0-100.0); Mean Platelet Volume 7.1; Monocytes # (A) 0.7 k/uL (0-1.0); Monocytes % (A) 7 %; Neutrophils # (A) 6.3 k/uL (1.3-7.7); Neutrophils % (A) 68 %; RBC 3.65 m/uL (3.80-5.40); RDW 13.4 % (11.5-15.5); WBC 9.3 k/uL (3.8-10.6); WBC (Perox) 9.47
[2017-07-04 07:14] LABS: Anion Gap 6 mmol/L; Blood Urea Nitrogen 9 mg/dL (7-17); Calcium 8.7 mg/dL (8.4-10.2); Carbon Dioxide 25 mmol/L (22-30); Chloride 104 mmol/L (98-107); Glucose 179 mg/dL (74-99); Non-African American GFR(MDRD) >60 (>60 ml/min/1.73 sqM); Potassium 4.3 mmol/L (3.5-5.1); Sodium 135 mmol/L (137-145)
[2017-07-04] MEDS: METOPROLOL TARTRATE 12.5 MG TAB PO SCH (07:51)
[2017-07-04] MEDS: CHOLECALCIFEROL 1,000 UNIT TAB PO SCH (07:51)
[2017-07-04] MEDS: ASPIRIN 325 MG TAB PO SCH (07:51)
[2017-07-04] MEDS: ATORVASTATIN 80 MG TAB PO SCH (07:52)
[2017-07-04] MEDS: LISINOPRIL 2.5 MG TAB PO SCH (08:01)
[2017-07-04 08:33] VITALS: RESP 16
[2017-07-04] MEDS ORDERED: CLOPIDOGREL 75 MG TAB PO SCH (09:00)
--- NOTE | 2017-07-04 10:16 | P.PN ---
Subjective Principal diagnosis: Non-STEMI This is a pleasant 67-year-old female with history of diabetes, hyperlipidemia, breast cancer with prior right-sided mastectomy 20 years ago, 12 years ago patient had a left-sided lumpectomy. She is a nonsmoker, no history of hypertension. No family history of premature coronary artery disease. Patient presents to the hospital with symptoms of chest discomfort. According to the patient, yesterday morning she developed a severe heaviness and pressure sensation in her chest, she states she was very clammy, and nauseated. The pain did radiate over into her left shoulder area. She states that she went back to bed and slept for several hours, however upon wakening the symptoms persisted and she came to the emergency room for further evaluation. At the time of my examination this morning, she continues to have mild pressure, although she states this morning that the pain worsens when she takes a deep breath. EKG on arrival here shows a sinus tachycardia with nonspecific ST-T wave changes. Subsequent EKG performed this morning shows a sinus tachycardia with anterior lateral ST-T wave changes. Chest x-ray suggests a possible mild interstitial edema, may be lower lobe atelectasis or pneumonia. White blood cell count on admission 15.5, 13 this morning. Hemoglobin 12.2, platelet count 339. Sodium 135, potassium 4.0, BUN 14, creatinine 0.7. Magnesium level on admission 1.1, AST 40, ALT 32. Troponin 3.0 , 4.6. Blood pressure on arrival 130/80, heart rate 104, 99% on 2 L of oxygen. 07/03/2017 Patient was taken to the cardiac catheterization lab yesterday where she underwent angioplasty with stenting of the LAD. Echocardiogram with Doppler study revealed an ejection fraction of 25-30%, apical lateral inferior hypokinesia noted. Patient was seen and examined this morning, denies any chest pain or difficulty in breathing. She has been up ambulating without any difficulty today. Blood pressure 108/60 with a heart rate in the 80s. CBC normal. Sodium 134, potassium 4.1, BUN 7, creatinine 1.6. Patient is currently on aspirin, Lipitor, metoprolol tartrate 12-1/2 mg one tablet by mouth twice a day, Effient 10 mg daily, We will also start the patient on a low-dose DEX inhibitor today. Continue to monitor for 24-48 hours. 07/04/2017 Patient seen and examined this morning, she has been up ambulating in the asencio without any difficulty. Hemodynamically stable. Objective - Vital Signs Vital signs: Vital Signs Temp 97.6 F 07/04/17 08:00 Pulse 97 07/04/17 08:00 Resp 16 07/04/17 08:00 BP 96/64 07/04/17 08:00 Pulse Ox 95 07/04/17 08:00 Intake & Output 07/03/17 07/04/17 07/04/17 18:59 06:59 18:59 Intake Total 480 1020 240 Balance 480 1020 240 Weight 90.9 kg Intake: Oral 480 1020 240 Other: Voiding Method Toilet Toilet Toilet # Voids 4 1 - Exam PHYSICAL EXAMINATION: HEENT: Head is atraumatic, normocephalic. Pupils equal, round. Neck is supple. There is no elevated jugular venous pressure. HEART EXAMINATION: Heart S1, S2 normal. No murmur or gallop heard. CHEST EXAMINATION: Lungs are clear to auscultation and precussion. No chest wall tenderness is noted on palpation or with deep breathing. ABDOMEN: Soft, nontender. Bowel sounds are heard. No organomegaly noted. Right radial site clean and dry, good distal pulse. EXTREMITIES: 2+ peripheral pulses with no evidence of peripheral edema and no calf tenderness noted. NEUROLOGIC patient is awake, alert and oriented -3. . - Labs CBC & Chem 7: 07/04/17 06:20 07/04/17 06:20 Labs: Abnormal Lab Results - Last 24 Hours (Table) 07/03/17 07/03/17 07/03/17 Range/Units 11:32 16:59 21:13 RBC (3.80-5.40) m/uL Hgb (11.4-16.0) gm/dL Sodium (137-145) mmol/L Glucose (74-99) mg/dL POC Glucose (mg/dL) 216 H 283 H 261 H (75-99) mg/dL 07/04/17 07/04/17 07/04/17 Range/Units 05:47 06:20 06:20 RBC 3.65 L (3.80-5.40) m/uL Hgb 11.1 L (11.4-16.0) gm/dL Sodium 135 L (137-145) mmol/L Glucose 179 H (74-99) mg/dL POC Glucose (mg/dL) 196 H (75-99) mg/dL Assessment and Plan (1) Diabetes Status: Acute (2) HTN (hypertension) Status: Acute (3) Hyperlipemia Status: Acute (4) Hx of breast cancer Status: Acute (5) Presence of stent in LAD coronary artery Status: Acute (6) Ischemic cardiomyopathy Status: Acute (7) Acute non-ST segment elevation myocardial infarction (STEMI) following previous myocardial infarction Status: Acute Plan: From cardiology's perspective, we will continue the patient on her current medications. She may be able to be discharged home today from cardiology's perspective, we will make her a follow-up appointment with Dr. Bond in the office post discharge. Patient has been provided prescriptions for all of her medications and she's been educated regarding them as well. DNP note has been reviewed, I agree with a documented findings and plan of care. Patient was seen and examined.
[2017-07-04 11:15] VITALS: BP 110/87; PULSE 88; TEMP 97
[2017-07-04 11:46] LABS: Glucose,Whole Blood 192 mg/dL (75-99)
--- NOTE | 2017-07-04 11:50 | PN ---
DATE OF SERVICE: 07/03/17 This 67-year-old woman was admitted with acute non-ST elevation myocardial infarction, underwent cardiac catheterization and stenting. No chest pain. No palpitations. No fever. Cardiology is following the patient. Medications adjusted. On exam, the patient is alert and oriented times three. Pulse 100. Blood pressure 112/81. Respiratory rate 17. Temperature 98.4 degrees. Pulse ox 98 % on room air. HEENT: Conjunctivae normal. Neck: No JVD. CARDIOVASCULAR: S1 , S2 muffled. Respiratory: Breath sounds diminished at the bases. No rhonchi. No crackles. Abdomen soft, nontender. LEGS: No edema. No swelling. COLORING ROOM WORKER: No focal deficits. LABS: Accu-Cheks 216, 283, 261. ASSESSMENT: 1. Acute non-ST elevation myocardial infarction as well as cardiac catheterization and stenting. 2. Congestive heart failure with chronic systolic dysfunction ejection fraction 25 to 30% with possible cardiomyopathy, ischemic. 3. Troponin 3.020. 4. Hyponatremia. 5. Diabetes mellitus Type 2. 6. History of deep venous thrombosis. 7. History of bilateral breast cancer. RECOMMENDATIONS AND DISCUSSION: Recommend to continue the current medications, continue symptomatic treatment, otherwise closely monitor. Monitor blood sugars closely. Increase ambulation. Closely follow with cardiology. Further recommendations to follow. MTDD
[2017-07-04] MEDS ORDERED: LISINOPRIL 2.5 MG TAB PO SCH (12:00)
--- NOTE | 2017-07-06 18:53 | DS ---
FINAL DIAGNOSES: 1. Acute non-ST segment elevation myocardial infarction status post cardiac catheterization and stenting. 2. Congestive heart failure with chronic systolic dysfunction, ejection fraction 25 to 30% with possible cardiomyopathy ischemic. 3. Troponin 3.020. 4. Hyponatremia. 5. Diabetes mellitus Type 2. 6. History of deep venous thrombosis. 7. History of bilateral breast cancer. DISCHARGE DISPOSITION: The patient is being discharged in stable condition with guarded prognosis. Discharge cleared by cardiology. HISTORY OF PRESENT ILLNESS: This 67-year-old woman with acute non-ST segment elevation myocardial infarction, the patient had cardiac catheterization and stenting. The patient improved significantly. On exam, vital signs are stable. CARDIOVASCULAR: S1, S2 muffled. Abdomen soft. Nervous system: No focal deficits. DISCHARGE ADVICE AND MEDICATIONS: 1. Diet is cardiac. 2. Activity limited until follow-up. 3. Follow-up with Dr. Christian Serrano as mentioned earlier. 4. Follow-up with Dr. Sosa as recommended. 5. Aspirin 320 mg daily. 6. Lipitor 80 mg po daily. 7. Calcium carbonate with vitamin D po b.i.d. 8. Vitamin D3 3000 daily. 9. Plavix 75 mg daily. 10. Nexium as before. 11. Zestril 2.5 mg daily. 12. Pro-Air 1000 mg b.i.d. 13. Lopressor 12.5 mg b.i.d. 14. Nitrostat 0.4 sublingual prn. Once again, the patient will be discharged in stable condition with guarded prognosis. MTDD
== END 2017-07-04 11:48 | disposition home or self-care (01) | DRG 247 ==
LOC: EC 18:10 → 6SEL 19:05
PROVIDERS: ADMIT Hospitalist; ATTEND Hospitalist
PROC: B2111ZZ Fluoroscopy of Multiple Coronary Arteries using Low Osmolar Contrast (ICD-10-PCS; 2017-07-02)
PROC: 027034Z Dilation of Coronary Artery, One Artery with Drug-eluting Intraluminal Device, Percutaneous Approach (ICD-10-PCS; principal; 2017-07-02 09:10)
PROC: 4A023N7 Measurement of Cardiac Sampling and Pressure, Left Heart, Percutaneous Approach (ICD-10-PCS; 2017-07-02 09:10)
DX: I21.4 Non-ST elevation (NSTEMI) myocardial infarction (principal); I50.22 Chronic systolic (congestive) heart failure; E87.1 Hypo-osmolality and hyponatremia; I11.0 Hypertensive heart disease with heart failure; E83.42 Hypomagnesemia; E11.9 Type 2 diabetes mellitus without complications; E78.5 Hyperlipidemia, unspecified; I25.5 Ischemic cardiomyopathy; K21.9 Gastro-esophageal reflux disease without esophagitis; Z79.84 Long term (current) use of oral hypoglycemic drugs; Z79.899 Other long term (current) drug therapy; Z85.3 Personal history of malignant neoplasm of breast; Z88.5 Allergy status to narcotic agent
CPT/HCPCS: 36415; 71010; 80048; 80053; 80061; 81003; 82550; 82553; 83690; 83735; 84484; 85025; 85610; 85730; 93005; 93306; 93454; 94760; 96365; 99291

== ENCOUNTER → 2021-08-24 | Outpatient (CLI) | payer MEDICARE, OTHER ==
[~2021-08-24] MED LIST: DENOSUMAB 60 MG/ML 1 ML SYRINGE SQ NR
[2021-08-24 11:34] VITALS: BP 111/78; PULSE 81; RESP 16; TEMP 98
== END ==
LOC: PROCWHC3 11:11
PROVIDERS: ATTEND Obstetrics & Gynecology
DX: M81.0 Age-related osteoporosis without current pathological fracture (principal); Z88.5 Allergy status to narcotic agent
CPT/HCPCS: 96372; J0897